=== PATIENT | male | born 1955 | race Caucasian/White ===

== ENCOUNTER → 2022-05-27 10:43 | Outpatient (CLI) | payer MEDICARE, OTHER, SELFPAY ==
[2022-05-27 12:18] LABS: Add Manual Diff / Slide Review NO; Basophils Absolute Auto 100 /uL (0-100); Basophils Percent Auto 1.3 % (0-2); Eosinophils Absolute Auto 200 /uL (0-450); Eosinophils Percent Auto 3.3 % (2-4); Hematocrit 46.7 % (41-53); Hemoglobin 15.9 g/dL (13.5-17.5); Lymphocytes Absolute Auto 1800 /uL (1100-4500); Lymphocytes Percent Auto 28.4 % (25-40); Mean Corpuscular HGB Conc 33.9 % (30-36); Mean Corpuscular Hemoglobin 30.9 PG (26-34); Mean Corpuscular Volume 91.2 fL (80-100); Monocytes Absolute Auto 500 /uL (0-900); Monocytes Percent Auto 8.7 % (3-14); Neutrophils Absolute Auto 3600 /uL (1500-7000); Neutrophils Percent Auto 58.3 % (50-75); Platelet Count 190 X10^3/uL (150-400); Red Blood Cell Count 5.13 X10^6/uL (4.5-5.9); Red Cell Distribution Width 13.9 % (11.6-14.8); White Blood Cell Count 6.3 X10^3/uL (4.5-11.0)
[2022-05-27 12:27] LABS: Blood Urea Nitrogen 12 mg/dL (9-20); Calcium 9.7 mg/dL (8.4-10.2); Carbon Dioxide 27 mmol/L (22-32); Chloride 101 mmol/L (98-107); Estimated Glomerular Filt Rate > 60 mL/min (>60); Glucose 120 mg/dL (80-110); HEMOLYSIS < 15 (0-50); Potassium 4.1 mmol/L (3.4-5.1); Sodium 137 mmol/L (137-145)
== END ==
PROVIDERS: PCP Internal Medicine; Referring Provider Orthopaedic Surgery Orthopaedic Surgery of the Spine; Visit Provider Orthopaedic Surgery Orthopaedic Surgery of the Spine
DX: Z01.818 Encounter for other preprocedural examination (principal); Z01.812 Encounter for preprocedural laboratory examination
CPT/HCPCS: 36415; 80048; 85025; 93005; 93010

== ENCOUNTER → 2022-06-01 10:48 | Outpatient (CLI) | payer MEDICARE, OTHER, SELFPAY ==
[2022-06-01 13:25] LABS: COVID19 -Nasal RAPID Negative (Negative)
== END ==
PROVIDERS: PCP Internal Medicine; Referring Provider Orthopaedic Surgery Orthopaedic Surgery of the Spine; Visit Provider Orthopaedic Surgery Orthopaedic Surgery of the Spine
DX: Z20.822 Contact with and (suspected) exposure to COVID-19 (principal)
CPT/HCPCS: 87635; C9803

== ENCOUNTER 2022-06-02 11:00 | Inpatient (IN) | payer MEDICARE, OTHER, SELFPAY ==
[2022-06-01 09:54] VITALS: BMI 27.1
[2022-06-02] VITALS (15 sets, daily range): BP systolic 111–167; BP diastolic 69–108; PULSE 73–90; RESP 14–20; TEMP 36.2–37.3; O2SAT 93–98; BMI 27.1
--- NOTE | 2022-06-02 | DI.RAD.S_ITS ---
PROCEDURE: XR LUMBAR SPINE 2-3V INDICATIONS: L5-S1 TLIF TECHNIQUE: 2 intraoperative views of the lumbar spine were acquired. COMPARISON: None. FINDINGS: Intraoperative images demonstrate lumbosacral fusion hardware placement. IMPRESSION: Intraoperative imaging obtained during lumbosacral fusion hardware placement. Dictated by: Nate Hansen M.D. on 06/02/2022 at 16:42 Approved by: Nate Hansen M.D. on 06/02/2022 at 16:43
[2022-06-02] MEDS: PREGABALIN 75 MG CAPSULE PO (11:34)
[2022-06-02] MEDS: LACTATED RINGERS 1,000 ML 42 ML IV ×2 (11:34→14:08)
[2022-06-02] MEDS: ACETAMINOPHEN 325 MG TABLET 975 MG PO (11:34)
--- NOTE | 2022-06-02 11:53 | PM.PREOP ---
Pre-operative Note COVID-19 COVID-19 status: Negative Result date/Date tested (Pos, Neg/Pending): 06/01/22 Criteria for continued procedure: Expected advancement of disease process, Possibility delay results in more complex future surgery or treatment, Increased loss of function, Continuing or worsening of significant or severe pain, Deterioration of the patient's condition or overall health and Delay expected to result in less-positive ultimate med/surg outcome Interval Note History & Physical reviewed/Exam performed by Physician: Yes Changes to H&P: No
[2022-06-02] MEDS: CEFAZOLIN 2 GM/20 ML SYRINGE IV ×2 (12:51→20:28)
[2022-06-02] MEDS: BUPIVACAINE 0.5% (PF) 30 ML, EPINEPHrine 0.15 MG INJ (12:55)
--- NOTE | 2022-06-02 13:10 | SUR.OPER ---
Prone on spine table, head in foam head support, padded chest and pelvic supports, gel pad at knees, lower legs supported by pillows; nipples, genitalia and toes free of pressure, arms secured on foam padded arm boards at <90 degrees abduction. Tape over blanket at thigh secured to table. POSITION APPROVED BY SURGEON AND ANESTHESIA
[2022-06-02] MEDS: BUPIVACAINE LIPOSOME 266 MG/20 ML VIAL INJ (14:38)
--- NOTE | 2022-06-02 14:51 | PM.OP.1 ---
Operative Date/Time/Diagnoses Date of procedure: 06/02/22 Time of procedure: 12:30 Pre-op diagnosis: 1. L4-5, L5-S1 spinal stenosis 2. Lumbar recurrent disc herniation at L5-S1 3. Lumbar radiculopathy Post-op diagnosis: same Procedure & Clinicians Procedure: 1. L5-S1 Postero-lateral and posterior interbody fusion 2. L5-S1 interbody cage placement. 3. L5-S1 repeat decompressive laminectomy with bilateral facetecomies 4. L5-S1 Posterior non-segmental instrumentation 5. L4-5 left hemilaminectomy 6. [place] of bone marrow from iliac crest 7. Utilization of microsurgical technique and operating microscope Same procedure as scheduled: Yes Indications: Patient has been having chronic back pain and worsening lumbar radiculopathy. Patient failed multiple conservative management with worsening pain weakness and numbness in her lower extremity. Patient has been having difficulty performing activity of daily living. After discussing risks benefits of treatment options, patient elected proceed with surgery. Surgeon: Mirna Geller Waste Elimination: Laya Siddiqui Click Yes if Unassisted: No Anesthesia Type: General Operative Notes Closure Type: primary Prosthetic devices, grafts, tissues, transplants, or devices: Globus revolve screws, Rise cage Estimated Blood Loss (mL): 50 Blood products transfused: none Procedure in detail: Patient was seen in the preoperative area. Risks and benefits of the surgery was discussed with the patient. Informed consent was obtained from the patient and placed in the chart. Surgical site was marked. Patient was taken to the operative room. General anesthesia was administered. Prophylactic antibiotic was given to the patient less than 30 min before the incision was made. Patient was placed into a prone position on the Aravind table. Patient's back was then prepped and draped in the sterile fashion. Time-out was performed at this time. Using AP and lateral C-arm imaging the interval between L5-S1 was identified and marked on patient's back. A 2 inch incision 2 in from midline was made on the right side first. The fascia was incised in line with skin incision. Globus MARS retractors was placed inside the incision and docked onto the L5 lamina. Using microsurgical technique and operating microscope, a L5 laminectomy and L5-S1 facetectomy was performed using a Kerrison rongeur. Patient was found have severe neural foraminal stenosis and required a total facetectomy for decompression which rendered L5-S1 grossly unstable and required a fusion procedure at the same time. The disc space at L5-S1 was identified. And a total diskectomy was performed at L5-S1 level. The endplates were decorticated using a rasp and shaver. The total diskectomy and decortication was performed at L5-S1 level in order to to accomplish a L5-S1 fusion. The local bone from the laminectomy and facetectomy was saved for local bone grafting. After the total diskectomy and decortication was completed, Trifecta bone graft material was combined with local bone that was harvested earlier. At this time, a separate skin is incision was made over the iliac crest. A Jamshidi needle was inserted into the iliac crest through a separate skin incision. 5 cc of bone marrow aspiration was obtained through the separate skin incision using a Jamshidi needle from the iliac crest. The bone marrow aspiration was combined with local bone and the Trifecta bone grafting material. The bone grafting material was placed into the L5-S1 interbody space along with a expandable cage. The cage was expanded to its maximum height using the torque limiting screwdriver. The MARs retractor was redirected over the L4-5 level under C-arm guidance. Using microsurgical technique and operating microscope a left-sided L4 hemilaminectomy was performed using a Kerrison rongeur. The L4-5 facet on the left was undercut to further decompress the lateral recess. The neural foramina wound was explored at the end of the hemilaminectomy, which was fully decompressed at the L4-5 level at the end of the hemilaminectomy. At this time a mirror image incision was made on the left side. The fascia was incised in line with the skin incision. Globus MARS retractor was inserted and docked onto the L5-S1 posterolateral gutter. Using the power drill, posterior-lateral decortication was performed at L5-S1 level until bleeding cortical bone was identified. The remaining bone grafting material was placed into the L5-S1 posterior lateral gutter he order to accomplish posterolateral fusion at the L5-S1 level. Using the double C-arm technique, pedicle screws were placed into the L5-S1 pedicles bilaterally. This was done by placing the Jamshidi needle into the pedicles, then placing the guidewires over the Jamshidi needle, and finally placing the cannulated screws over the guidewires bilaterally. After the pedicle screws were placed, 2 titanium rods was locked into the heads of the pedicle screws using locking caps and torque limiting screwdriver. After all the hardware was placed, and confirmed with AP and lateral C-arm imaging, the wound was then irrigated with sterile normal saline and packed with Ray-Nixon gauze for 3 min to accomplish hemostasis. After the gauze was removed the deep fascia was closed with #1 Vicryl suture. The subcutaneous layer was closed with 2-0 Vicryl. The skin was closed with skin juan. Patient tolerated the procedure well. There were no complications. Complications: none Post-operative Condition: stable Disposition: PACU Plan for aftercare: Admit to inpatient hospital
[2022-06-02] MEDS: hydrOXYzine pamoate 25 MG CAPSULE PO (15:05)
[2022-06-02] MEDS: HYDROMORPHONE 2 MG INJ IV ×4 (15:05→15:20)
[2022-06-02] MEDS: OXYCODONE IR 5 MG TABLET PO (15:06)
--- NOTE | 2022-06-02 15:43 | SUR.PHASEI ---
Stable PACU stay, BP elevated, spoke with Dr. Daniels. Lisinopril ordered. Pt medicated with Dilaudid, vistaril and oxycodone.
[2022-06-02] MEDS: lisinopriL 20 MG TABLET PO (15:58)
--- NOTE | 2022-06-02 16:02 | SUR.PHASEI ---
Lisinopril given, pt transported to room 210.
[2022-06-02] MEDS: SODIUM CHLORIDE 0.9% 1,000 ML 100 ML IV (16:34)
--- NOTE | 2022-06-02 17:01 | PC.NURSE ---
Pt stated he wanted to get up and go to the bathroom-checked for numbness or weakness and Pt had neither. Pt was able to logroll out of bed and ambulate to the bathroom with sba. and Pt ambulated without dizziness to the bathroom and back to bed. Replaced dressing to back with a coversite because his post-op dressing had rolled up and the tape had split. Pt back to bed with scd's on and running. Bed alarm on for safety. Pt currently is eating his dinner. Stated that his pain to his back improved when he got up and walked.
[2022-06-02] MEDS: ALBUTEROL 2.5 MG/3 ML NEB (ADULT) INH ×2 (17:45→21:15)
[2022-06-02] MEDS: OXYCODONE IR 5 MG TABLET 10 MG PO ×2 (18:21→23:53)
[2022-06-02] MEDS: GABAPENTIN 300 MG CAPSULE PO (20:28)
[2022-06-02] MEDS: AMLODIPINE 5 MG TABLET PO (20:28)
[2022-06-02] MEDS: SENNOSIDES 8.6 MG TABLET 17.2 MG PO (20:28)
[2022-06-02] MEDS: DOCUSATE 100 MG CAPSULE PO (20:28)
[2022-06-03 03:00] VITALS: BP 140/74; PULSE 77; RESP 17; TEMP 36.8; O2SAT 95
[2022-06-03] MEDS: CEFAZOLIN 2 GM/20 ML SYRINGE IV (05:15)
[2022-06-03] MEDS: ACETAMINOPHEN 325 MG TABLET 650 MG PO (05:20)
--- NOTE | 2022-06-03 08:12 | P.DS_ITS ---
History of Present Illness History of Present Illness Date Patient Seen: 06/03/22 Time Patient Seen: 08:12 Chief complaint: Back pain Narrative: Pain is mild this morning. Denies fever or chills. No nausea vomiting. Patient has assistance at home. Discharge Providers Provider Discharge Date: 06/03/22 Primary care physician: Dayana Hernandez MD Consults: 06/02/22 16:03 Consult to Occupational Therapy Evaluate & Treat Comment: Physician Instructions: Evaluate and treat Consult to Physical Therapy Evaluate & Treat Comment: Physician Instructions: Evaluate and Treat Discharge provider: Javy Cortez PA-C Summary Hospital Course Discharge Diagnosis: 1. L4-5, L5-S1 spinal stenosis 2. Lumbar recurrent disc herniation at L5-S1 3. Lumbar radiculopathy Hospital Course: Procedure: 1. L5-S1 Postero-lateral and posterior interbody fusion 2. L5-S1 interbody cage placement. 3. L5-S1 repeat decompressive laminectomy with bilateral facetecomies 4. L5-S1 Posterior non-segmental instrumentation 5. L4-5 left hemilaminectomy 6. [place] of bone marrow from iliac crest 7. Utilization of microsurgical technique and operating microscope Same procedure as scheduled: Yes Indications: Patient has been having chronic back pain and worsening lumbar radiculopathy. Patient failed multiple conservative management with worsening pain weakness and numbness in her lower extremity.? Patient has been having difficulty performing activity of daily living.? After discussing risks benefits of treatment options, patient elected proceed with surgery. Surgeon: Mirna Geller Meter/Relay Technician: Laya Siddiqui Click Yes if Unassisted: No Anesthesia Type: General Operative Notes Closure Type: primary Prosthetic devices, grafts, tissues, transplants, or devices: Globus revolve screws, Rise cage Estimated Blood Loss (mL): 50 Blood products transfused: none Patient admitted to the hospital for the above-mentioned procedure. Patient consented to the same. Patient underwent lumbar fusion June 02, 2022. Patient back in his room recovering well and is in stable condition. Patient mobilize this morning with physical therapy. Discharge home today after physical therapy. Exam Vital Signs (past 8 hours): - 06/03/22 03:00 Temperature 98.3 F Pulse Rate 77 Respiratory Rate 17 Blood Pressure 140/74 Pulse Oximetry 95 Oxygen Flow Rate 0 Oxygen Delivery Method Room Air Oxygen Flow Rate 0 Narrative Exam Narrative: 66-year-old male resting comfortably in bed in no apparent distress. Patient having breakfast. Dressing Clean, dry, intact.. Motor functions intact bilateral lower extremities. Sensation grossly intact to light touch bilateral lower extremities. Const General: cooperative and comfortable Orientation: alert Resp Effort & Inspection: normal respiratory effort and able to speak in complete sentences [facility] Medical History COPD (chronic obstructive pulmonary disease) Diabetes Diverticulitis Diverticulosis Easy bruisability Hearing impaired Hepatitis C (2001) Hiatal hernia HLD (hyperlipidemia) HTN (hypertension) Osteoarthritis Post laminectomy syndrome (2011) Prostate cancer (2011) Recurrent herniation of lumbar disc Umbilical hernia Surgical History H/O vasectomy History of surgery History of total right hip arthroplasty (12/2020) Hx of prostatectomy (2011) Hx of repair of right rotator cuff Social History household members: spouse and family Smoking Status: Former smoker alcohol intake: current Discharge Assessment & Plan Assessment and Plan Assessment: Patient progressing as expected Plan of Treatment: Multimodal pain management Mobilize with physical therapy Discharge home today after physical therapy. Discharge Plan Discharge Plan Patient Disposition: Home Discharge orders & Medications Discharge Orders: Discharge (Order); Ordered 06/03/22 Ordered By: Javy Cortez Prescriptions: New acetaminophen 325 mg Tablet 650 mg PO Q6HR PRN (Reason: Pain, Mild (1-3)) Qty: 60 0RF docusate sodium 100 mg Capsule 100 mg PO BID Qty: 20 0RF oxycodone 5 mg Tablet 10 mg PO Q3HR PRN (Reason: Pain, Severe (7-10)) Qty: 60 0RF hydroxyzine pamoate 25 mg Capsule 25 mg PO Q4HR PRN (Reason: Nausea And Vomiting) Qty: 30 0RF Continued cetirizine [Zyrtec] 10 mg Tablet 10 mg PO BID amlodipine 5 mg Tablet 5 mg PO BID gabapentin 300 mg Capsule 300 mg PO BEDTIME lisinopril-hydrochlorothiazide 20-25 mg Tablet 1 tab PO DAILY albuterol sulfate 90 mcg/actuation Hfa Aerosol Inhaler 2 puff INHALATION Q4-6H PRN (Reason: Shortness Of Breath) rosuvastatin 20 mg Tablet 20 mg PO DAILY Follow up/Referrals: Dayana Hernandez MD [Primary Care Provider] - Mirna Geller MD [Physician] - (2 weeks) Diet/Activity/Treatments Diet: Diet as Tolerated Activity: Limit bending, lifting, twisting Skin/Wound/Dressing Care Report to your healthcare provider any signs of infection, such as:: chills, fever, increased pain, unusual drainage and unusual redness Dressing: Keep dressing clean and dry Visit Report/Discharge Packet Instructions: DI for Transforaminal Lumbar Interbody Fusion Stand Alone Forms: Surgery Discharge Discharge Data Primary Care Provider: Dayana Hernandez Attending Provider: Mirna Geller
[2022-06-03] MEDS: OXYCODONE IR 5 MG TABLET 10 MG PO (09:04)
[2022-06-03] MEDS: LORATADINE 10 MG TABLET PO (09:04)
[2022-06-03] MEDS: DOCUSATE 100 MG CAPSULE PO (09:04)
[2022-06-03] MEDS: ATORVASTATIN 20 MG TABLET 40 MG PO (09:04)
--- NOTE | 2022-06-03 09:34 | OT.IP.EVAL ---
Current Diagnoses Other intervertebral disc displacement, lumbar region (06/02/22) Postlaminectomy syndrome, not elsewhere classified (06/02/22) Surgery Performed Operation Date: 06/02/22 12:45 Actual Procedures p L5-S1 TLIF, L4-5 left hemilaminectomy - Mirna Geller MD Past Medical History (Last Reviewed 06/03/22 @ 08:15 by Javy Cortez PA-C) COPD (chronic obstructive pulmonary disease) Diabetes Diverticulitis Diverticulosis Easy bruisability Hearing impaired Hepatitis C (2001) Hiatal hernia HLD (hyperlipidemia) HTN (hypertension) Osteoarthritis Post laminectomy syndrome (2011) Prostate cancer (2011) Recurrent herniation of lumbar disc Umbilical hernia Surgical History (Last Reviewed 06/03/22 @ 08:15 by Javy Cortez PA-C) H/O vasectomy History of surgery History of total right hip arthroplasty (12/2020) Hx of prostatectomy (2011) Hx of repair of right rotator cuff Occupational Therapy Inpatient Evaluation/Re-Eval M1 PT/OT-IP Prior Functional Status Start: 06/03/22 12:04 Freq: NEEDED Status: Active Protocol: Document 06/03/22 09:05 [facility] (Rec: 06/03/22 12:30 [facility] [id number]) Medical Review Prior Functional Status Communication independent Mobility and Gait Pt states did not use any devices for ambulation. Activities of Daily Living and IADL's Increased time for ADL's due to his pain. Social History Household Members spouse,family Living Arrangements House Number of Floors (Floors) Two Floors Home Environment High Toilet,Walk in Shower Home Equipment Four Wheel Walker,Straight Cane,Shower Seat without Backrest,Hand Held Shower,Long Handled Sponge,Long Handled Shoe Horn,Shellfish Manager,Grab Bars Near Toilet,Grab Bars In Shower Additional Social History Comment crutches M2 OT-IP Current Condition Start: 06/03/22 12:04 Freq: Status: Active Protocol: Document 06/03/22 09:05 [facility] (Rec: 06/03/22 12:30 [facility] [id number]) Occupational Therapy Current Condition Current Condition Evaluation Date 06/03/22 Treatment Diagnosis s/p L4-5 , left hemilaminectomy, L5-S1 TLIF Post Operative Precautions Lumbar Precautions Log Roll,No Twisting,Limit Bending,Lifting Restriction of 10 lbs,Gait Belt above Incisional Area M3 OT- IP Subjective and Pain Start: 06/03/22 12:04 Freq: Status: Active Protocol: Document 06/03/22 09:05 [facility] (Rec: 06/03/22 12:30 [facility] [id number]) OT- Subjective Occupational Therapy Visit Type Type Initial Evaluation Visit Start Time 09:05 Visit Stop Time 09:34 Total Visit Minutes 29 Occupational Therapy Visit Comments Patient Comments Pt agreed to get up for OT eval and wanting to get dressed. Patient/Caregiver Goals TO go home. OT Pain Assessment Pain When Pain Assessed During Mobility Pain Present Pain Present Pain Reported Location back Intensity 8 Scale Used Numeric (0 - 10) M4 OT- IP ADL's Start: 06/03/22 12:04 Freq: Status: Active Protocol: Document 06/03/22 09:05 [facility] (Rec: 06/03/22 12:30 [facility] [id number]) OT VXY-Gnwx-Apxidim General Evaluation Self-Feeding Ability Independent OT ADL-Grooming General Evaluation Grooming Ability Standby Assistance Areas Needing Assistance Retrieving/Set-up of Grooming Items OT ADL-Oral Care General Eval Oral Care Ability Standby Assistance Areas of Assistance Retrieving/Set-Up of Items OT ADL-Dressing General Eval Upper Body Dressing Ability Independent Lower Body Dressing Ability Minimal Assistance Areas Needing Assistance Socks Comments OT Dressing Comments Able to show pt sock aid and pt able to use with good safety and understanding. OT ADL-Toileting Comments OT Toileting Comments Able to talk to pt regarding may be easier to stand to wipe at this time. OT ADL-Bathing Comments OT Bathing Comments Pt states to shower at home. M5 OT- IP IADL's Start: 06/03/22 12:04 Freq: Status: Active Protocol: Document 06/03/22 09:05 [facility] (Rec: 06/03/22 12:30 [facility] [id number]) OT-Instrumental Activities of Daily Living Home Safety Awareness Awareness of Need for Assistance at Home Good Awareness Ability to Problem Solve Emergency Able to Problem Solve Situations Home Safety Comments Pt's to be home to be able to assist her for all needs as needed. M6 OT- IP Functional Cognition Start: 06/03/22 12:04 Freq: Status: Active Protocol: Document 06/03/22 09:05 [facility] (Rec: 06/03/22 12:30 [facility] [id number]) Cognitive Factors Limiting Selfcare Function Cognitive Ability Level of Alertness Alert Patient Orientation Name,Place,Situation Attention Span Ability Capable of Focused Attention, Capable of Sustained Attention Ability to Follow Commands Able to Follow Multi-Step Commands Memory Description No Deficits Noted Safety Awareness No Deficits Noted Problem Solving Ability No deficits Noted Cognitive Comments Cognitive Assessment Comments Pt able to follow back precautions after initial education of back precautions. Pt just needing occasional cues to slow down. OT- Vision and Hearing OT- Hearing Assessment OT- Hearing Assessment WFL M7 OT- IP Mobility and Balance Start: 06/03/22 12:04 Freq: Status: Active Protocol: Document 06/03/22 09:05 [facility] (Rec: 06/03/22 12:30 [facility] [id number]) OT- Bed Mobility Assessment Supine to Sit Supine to Sit Assist Standby Assistance Sit to Supine Sit to Supine Assist Standby Assistance Scooting Scooting to Edge of Bed Standby Assistance OT-Transfer Assessment Sit to and From Stand Sit to and from Stand Standby Assistance Transfers Transfer Ability Standby Assistance Technique Transfer Destination Bed,Chair Transfer Technique Stand Step Pivot Devices Transfer Assistive Devices None Comments Mobility Comments Pt SBA for all needs of bed mobility and mobility in the room. OT- Balance Assessment Sitting Balance and Reactions Static Sitting Balance Ability Normal Dynamic Sitting Balance Ability Normal Standing Balance and Reactions Static Standing Balance Ability Normal Dynamic Standing Balance Ability Good M8 OT- IP Objective Assessments Start: 06/03/22 12:04 Freq: Status: Active Protocol: Document 06/03/22 09:05 [facility] (Rec: 06/03/22 12:30 [facility] [id number]) OT-Muscle Tone Assessment Muscle Tone WNL Yes M9 OT- IP Assessment and Plan Start: 06/03/22 12:04 Freq: Status: Active Protocol: Document 06/03/22 09:05 [facility] (Rec: 06/03/22 12:30 [facility] [id number]) OT Summary Assessment and Plan Potential Rehabilitation Potential Excellent Analytic Complexity at Evaluation Low Summary OT Impairments Pain,Dressing,Bathing Progress Towards Goals Progressing Toward Goals Assessment Summary Pt low complexity and main barriers needing occasional vc to slow down and incorporate his back precautions for all needs. Pt has a supportive to be able to assist him for all needs. Goals Grooming Goal Independent Dressing Goal Independent Toileting Goal Independent Bathing Goal Independent Toilet Transfer Goal Independent Shower Transfer Goal Independent Days to Meet Goals 1 Frequency of Treatment Frequency Of Treatment Once a Day Treatment Plan OT Treatment Plan ADL Training,Functional Mobility,Patient/Family Education,Discharge Planning Discharge Recommendations OT Discharge Recommendations Home with Assistance Transportation Needs at Discharge Private Vehicle
--- NOTE | 2022-06-03 10:20 | PT.IIE ---
Current Diagnoses Other intervertebral disc displacement, lumbar region (06/02/22) Postlaminectomy syndrome, not elsewhere classified (06/02/22) Surgery Performed Operation Date: 06/02/22 12:45 Actual Procedures p L5-S1 TLIF, L4-5 left hemilaminectomy - Mirna Geller MD Surgical History (Last Reviewed 06/03/22 @ 08:15 by Javy Cortez PA-C) H/O vasectomy History of surgery History of total right hip arthroplasty (12/2020) Hx of prostatectomy (2011) Hx of repair of right rotator cuff Medical History (Last Reviewed 06/03/22 @ 08:15 by Javy Cortez PA-C) COPD (chronic obstructive pulmonary disease) Diabetes Diverticulitis Diverticulosis Easy bruisability Hearing impaired Hepatitis C (2001) Hiatal hernia HLD (hyperlipidemia) HTN (hypertension) Osteoarthritis Post laminectomy syndrome (2011) Prostate cancer (2011) Recurrent herniation of lumbar disc Umbilical hernia Physical Therapy Inpatient Evaluation/Re-Eval M1 PT/OT-IP Prior Functional Status Start: 06/03/22 13:54 Freq: NEEDED Status: Active Protocol: Document 06/03/22 10:20 AB (Rec: 06/03/22 14:05 AB [id number]) Medical Review Prior Functional Status Medical History Reviewed Yes Communication able to make needs known Mobility and Gait pt tated that he is independent with all mobiltiies and ambulation without AD Social History Household Members spouse,family Living Arrangements House Number of Floors (Floors) Two Floors Number of Stairs To Enter/Railing? pt stays on main level of the house no steps to enter Home Environment Walk in Shower,Built-In Shower Seat Home Equipment Four Wheel Walker,Straight Cane,Crutches,Hand Held Shower ,Grab Bars In Shower Additional Social History Comment pt will have his spouse to assist him; his [id number] also at home to assist him if needed M2 PT-IP Current Condition Start: 06/03/22 13:54 Freq: NEEDED Status: Active Protocol: Document 06/03/22 10:20 AB (Rec: 06/03/22 14:05 AB [id number]) Physical Therapy Current Condition Current Condition Evaluation Date 06/03/22 Treatment Diagnosis s/o L5S1 TLIF; difficulty in walking Onset Date 06/02/22 M3 PT-IP Subjective Start: 06/03/22 13:54 Freq: NEEDED Status: Active Protocol: Document 06/03/22 10:20 AB (Rec: 06/03/22 14:05 AB [email or web address]) Subjective Physical Therapy Visit Type Type Initial Evaluation Visit Start Time 10:20 Visit Stop Time 10:45 Total Visit Minutes 25 Number of COMMODITY SPECIALIST Visits 0 Physical Therapy Visit Comments Patient Comments agreeable to do PT Therapy Pain Assessment Pain When Pain Assessed At Rest Pain Present Pain Present Pain Reported Location back Intensity 4 Scale Used Numeric (0 - 10) Pain Management Techniques Apply Cold,Distraction, Modification of Treatment,Re- positioning,Timing of Activity with Medications M4 PT-IP Mobility and Gait Start: 06/03/22 13:54 Freq: NEEDED Status: Active Protocol: Document 06/03/22 10:20 AB (Rec: 06/03/22 14:05 [email or web address]) PT-Bed Mobility Assessment Rolling Type of Rolling Log Rolling Level of Assist Independent Supine to Sit Supine to Sit Independent Sit to Supine Sit to Supine Independent PT-Transfer Assessment Sit to and From Stand Sit to and from Stand Standby Assistance,1 Person Assistance,Use of Upper Extremities Equipment Transfer Assistive Device Gait Belt,4 Wheeled Walker Orthotic/Prosthetic Devices or Brace: No Transfers Transfer Destination Chair Transfer Technique ambulated Transfer Ability Level of Assist Standby Assistance,1 Person Assistance,Use of Upper Extremities Comments Mobility Comments reviewed back precautions and pt able to recall. completed log roll supine to sit SBA. completed sit to stand SBA and ambulated in room using FWW SBA. pt sat on chair. agreed to walk in the hallway. pt has a 4WW at home. assessed ambultion using 4WW. completed sit to stand from chair SBA and ambulated in the hallway ~ 225 ft using 4WW SBA. pt ambulated back to his room. assessed ambulation without AD and completed ~ 30 ft in room SBA. antalgic gait with increase R lateral lean. pt stated that he has scoliosis. pt requested to go back to bed . completed lot roll sit to supine SBA. positioned in bed . call light and table placed within reach. Gait Assessment Gait Gait Assistance Required: Standby Assistance,1 Person Assist Distance (Feet) 225 Able to Maintain Weight Bearing Status Yes During Gait Assistive Devices Assistive Device None,Gait Belt,4 Wheeled Walker Orthotic/Prosthetic Devices or Brace: No Gait Deviations General Gait Pattern Antalgic,Decreased Stride Length,Decreased Feet Clearance Factors Limiting Gait Function Factors Limiting Gait Function Decreased Activity Tolerance, Decreased Strength,Limited Range of Motion,Pain,Poor Safety Awareness PT-Balance Assessment Sitting Balance and Reactions Static Sitting Balance Ability Normal Dynamic Sitting Balance Ability Normal Standing Balance and Reactions Static Standing Balance Ability Good Dynamic Standing Balance Ability Fair Device Used without AD M5 PT-IP Objective Assessments Start: 06/03/22 13:54 Freq: NEEDED Status: Active Protocol: Document 06/03/22 10:20 AB (Rec: 06/03/22 14:05 AB [email or web address]) Orientation Orientation/Cognition Level of Alertness Alert Orientation Name,Age,Birthday,Month,Date, Year,Day of Week,Place, Situation Language Function Ability No Deficits Noted Safety Awareness Understands Safety Issues Memory Description No Deficits Noted Gross Range of Motion Lower Extremity ROM Assessment Within Functional Limits Strength Comments Strength Comments RLE: 4/5 LLE: 4-/5 Coordination Assessment Gross Coordination Gross Coordination WNL Sensation Assessment Sensation Gross Sensation WNL Muscle Tone Muscle Tone WNL Yes M6 PT-IP Treatment Start: 06/03/22 13:54 Freq: NEEDED Status: Active Protocol: Document 06/03/22 10:20 AB (Rec: 06/03/22 14:05 AB [email or web address]) Physical Therapy Treatment Education Education Provided Precautions,Weight Bearing Status,Post-Op Packet,Safety M7 PT-IP Assessment and Plan Start: 06/03/22 13:54 Freq: NEEDED Status: Active Protocol: Document 06/03/22 10:20 AB (Rec: 06/03/22 14:05 [email or web address]) PT Summary Assessment and Plan Potential Rehabilitation Potential Good Status of Condition at Evaluation Stable Summary Impairments Pain,ROM,Strength,Balance, Coordination,Sensation,Tone, Cognition,Bed Mobility, Transfers,Gait,Activity Tolerance Assessment Summary pt requiring SBA with mobility using 4WW for ambulation. pt plans to go home and will have his spouse to assist him as needed. pt may to go home when medically stable. Goals Bed Mobility Goal Independent Transfer Goal Independent,Four Wheeled Walker Gait Goal Independent,Four Wheel Walker Gait Distance 300 Days to Meet Goals 3 Frequency of Treatment Frequency Of Treatment Twice a Day Treatment Plan Physical Therapy Treatment Plan Bed Mobility Training,Transfer Training,Gait Training, Therapeutic Exercise,Balance Retraining,Post Op Education, Discharge Planning,Hot or Cold Pack,Neuromuscular Re-ed, Coordination Retraining,Manual Therapy Precautions Lumbar Precautions Log Roll,No Twisting,Limit Bending,Lifting Restriction of 10 lbs,Gait Belt above Incisional Area Recommendations To Nursing Amount of Assist Needed Standby Assistance Discharge Recommendations PT Discharge Recommendations Home with Assistance Transportation Needs at Discharge Private Vehicle
[2022-06-03 10:54] VITALS: PULSE 88; RESP 16; O2SAT 96
[2022-06-03] MEDS: ALBUTEROL 2.5 MG/3 ML NEB (ADULT) INH (10:54)
[2022-06-03 10:59] VITALS: BP 137/77; PULSE 84; RESP 16; TEMP 37.4; O2SAT 95
--- NOTE | 2022-06-03 11:36 | PC.NURSE ---
Pt is dressed and ready for discharge home with Spouse Luciana. IV has been removed. Went over d/c instructions with Pt and Spouse-discussed d/c meds, time of last dose, reviewed stroke education and back precautions, dsg to back changed (had a small amount of drainage and had rolled up a bit. Reminded Pt that he was not permitted to drive while taking narcotics and to not exceed 3000mg of acetaminophen in 24 hours. Encouraged Pt to drink plenty of fluids to prevent constipation or dehydration, reviewed s/s of infection and when to call MD and to follow up as scheduled. Pt denied further questions and was taken out via w/c by RN to pov with Spouse and all belongings.
--- NOTE | 2022-06-03 13:06 | CM.DANOTE ---
Patient is a 66 yo male who was admitted on 06/02/22 for TLIF. Pt has [employer] and [employer] for insurance and his PCP is Dr. Dayana Hernandez. EMR was reviewed. Per Ortho, pt tolerated procedure well and likely stable to d/c home today pending PT. Per PT/OT, recommending safe d/c home with spouse and outpt PT. SW met bedside with pt and explained role as OT initial eval being completed and pt confirms he lives at home in [place] with his spouse and works at [employer] and is independent with ADLs and does not use DME and still drives. Pt denies any hx of HH or SNF and does not anticipate any needs at d/c. Per RN, no concerns with d/c at all and states best recovery from TLIF I've ever seen. Pt confirms he is calling his spouse now to provide transport home within the hour and outpt Ortho f/u. Plan: Patient to d/c home via spouse POV this morning and outpt Ortho f/u and no further SW needs at this time. JEANNETTE Lopes Discharge Planning/Care Management CM Discharge Assessment Start: 06/03/22 13:04 Freq: Status: Discharge Protocol: Document 06/03/22 13:05 BF (Rec: 06/03/22 13:06 BF [id number]) Discharge Planning Assessment Assigned Machinery Rigger JEANNETTE George DPOA/Assigned Designee Name fidel Chowdhury Advance Directives? No Advance Directives on File No History Provided By Patient,Medical Record Has Patient been admitted in last 30 No days? Prior Living Arrangements House Household Members spouse,family Type of transporation used prior to Drives own vehicle admit Independent with ADL's Yes Is patient alert and oriented? Yes Caregiver for Another No Community Services used prior to Physical Therapy admission: DME Already Rented / Owned FWW / Walker Barriers to Discharge No Discharge Plan Home Community Services Physical Therapy Transportation Arrangement Spouse to arrive around 1000- 1030 Referrals Initiated None needed Whiteboard Updated in Patient Room with Yes name and ext. # of Machinery Rigger Review Status In Process Please Provide Date Initial DC 06/03/22 Assessment Was Performed Next Review Type Continued Stay Review Pre-Anesthesia Assessment Start: 06/01/22 09:54 Freq: Status: Discharge Protocol: Document 06/01/22 09:54 CAB (Rec: 06/01/22 10:42 CAB [id number]) Pre-Anesthesia Assessment Patient Information Reviewed Via Phone Assessment Assessment Completed With Patient Diagnostic Results BMP/CMP,CBC,EKG Comment Labs/ECG @ 05/27/22, COVID screen @ 06/01/22 Primary Care Provider Dayana Hernandez Seen Specialist in Last 12 Months Yes Specialist Seen Bridge Teacher,Orthopedist Primary Language Bahamian Intelligence Agent Required No Height 182.88 cm Weight 90.718 kg Body Mass Index (BMI) 27.1 Hearing Ability Hard of Hearing Visual Assist Glasses Dentition Type Teeth, Natural Present,Full- Upper Barriers to Learning None Hx Anesthesia Reactions No Hx Family Anesthesia Reaction No Hx Malignant Hyperthermia No Hx Blood Transfusions No Anesthesia Review Requested No alcohol intake current alcohol intake frequency 0-2 drinks per day Smoking Status Former smoker Tobacco type cigarettes how long ago did patient quit smoking Quit 2012 Substance Use Type does not use Pain Present Pain Reported Musculoskeletal Symptoms Back Pain History of Falling (Recent or History of No ) Patient is completely paralyzed or No completely immobile Mental Status Oriented to own ability Is patient on oxygen? No Does patient have TRIPLETT/SOB Yes: Occasional r/t COPD Hx Sleep Apnea No Currently Taking a Beta [place] No Can You Climb a Flight of Stairs Without No SOB Hx Chest Pain No Hx SOB Yes: Occasional r/t COPD Anti-Coagulant Therapy No Has a Line Controller No Cardiac Testing No Hx Pacemaker/ICD No Pacemaker Rep Required? 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 Received a COVID vaccine? Yes: Needs second booster Received all doses? No Marital Status Lives With spouse,family Prior Living Arrangements House Number of Floors (Floors) Two Floors Support System Family,Spouse Does the Patient Have Assistance After Yes Surgery Patient Discharge Plan Description Return Home Comment Pt advised 1 night length of stay per surgeon Feels Safe in Current Environment Yes Been Physically Hurt or Threatened By a No Person in Current Environment Do you have thoughts of harming yourself None or others? Are you currently considering suicide? No Do you have a plan to hurt yourself or No Plan others? Do You Have Any Spiritual Beliefs That No May Affect Your HC Choices? Do You Have Any Cultural Practices That No May Affect Your HC Choices? Comment Quirino Who Can We Speak to About Patient's Care Family, friends Identifying Code for Release of Patient Declines to issue Information Health Care Proxy/Next of Kin Luciana () Health Care Proxy Emergency Contact Name Luciana () Emergency Contact Advance Directives? No Power of Computer Numerical Control Programmer No Power of Computer Numerical Control Programmer Name Luciana () Power of Computer Numerical Control Programmer PAC Instructions Diabetes instructions,Durable medical equipment,Medications to take/avoid,Nasal antibiotic ,No ETOH/petroleum product on skin DOS,NPO,Post-op transportation,Pre-surgical wash,Sensory aids,Sturdy shoes /comfortable clothes,Do not bring valuables and remove jewelry Comment Pt states never given Mupirocin
== END 2022-06-03 11:40 | disposition home or self-care (01) | DRG 455 ==
LOC: OR 11:01 → AC 11:05
PROVIDERS: Admitting Provider Orthopaedic Surgery Orthopaedic Surgery of the Spine; PCP Internal Medicine; Referring Provider Orthopaedic Surgery Orthopaedic Surgery of the Spine; Visit Provider Orthopaedic Surgery Orthopaedic Surgery of the Spine
PROC: 0SG30AJ Fusion of Lumbosacral Joint with Interbody Fusion Device, Posterior Approach, Anterior Column, Open Approach (ICD-10-PCS; principal; 2022-06-02 12:45)
DX: M51.26 Other intervertebral disc displacement, lumbar region (principal); M48.061 Spinal stenosis, lumbar region without neurogenic claudication; M48.07 Spinal stenosis, lumbosacral region; M51.27 Other intervertebral disc displacement, lumbosacral region; M54.16 Radiculopathy, lumbar region; I10 Essential (primary) hypertension; E78.5 Hyperlipidemia, unspecified; J44.9 Chronic obstructive pulmonary disease, unspecified; Z20.822 Contact with and (suspected) exposure to COVID-19; Z87.891 Personal history of nicotine dependence
CPT/HCPCS: 72100; 76000; 82962; 87635; 94640; 97161; 97165; 97535; C9803; C1713; C1831; C9290; J0171; J0690; J1100; J1170; J2250; J2405; J2704; J3010; J7613

== ENCOUNTER 2024-01-11 11:27 | Day surgery (SDC) | payer MEDICARE, OTHER, SELFPAY ==
[2022-06-02 16:14] VITALS: BMI 27.1
--- NOTE | 2024-01-11 12:02 | P.HP_ITS ---
History of Present Illness History of Present Illness Date Patient Seen: 01/11/24 Chief complaint: EGD & Colonoscopy Narrative: Screening colonoscopy and upper endoscopy to screen for esophageal varices with a new diagnosis of cirrhosis [facility] Medical History COPD (chronic obstructive pulmonary disease) Diabetes Diverticulitis Diverticulosis Easy bruisability Hearing impaired Hepatitis C (2001) Hiatal hernia HLD (hyperlipidemia) HTN (hypertension) Osteoarthritis Post laminectomy syndrome (2011) Prostate cancer (2011) Recurrent herniation of lumbar disc Umbilical hernia Surgical History H/O vasectomy History of surgery History of total right hip arthroplasty (12/2020) Hx of prostatectomy (2011) Hx of repair of right rotator cuff Social History household members: spouse and family Smoking Status: Former smoker alcohol intake: current Meds Home Medications and Allergies Home Medications Medication Instructions Recorded Confirmed Type albuterol sulfate 90 mcg/actuation 2 puff inhalation Q4-6H PRN 06/01/22 06/02/22 History aerosol inhaler Shortness Of Breath amlodipine 5 mg tablet 5 mg PO BID 06/01/22 06/02/22 History cetirizine 10 mg tablet (Zyrtec) 10 mg PO BID Dermatographia 06/01/22 06/02/22 History gabapentin 300 mg capsule 300 mg PO BEDTIME 06/01/22 06/02/22 History lisinopril 20 1 tab PO DAILY 06/01/22 06/02/22 History mg-hydrochlorothiazide 25 mg tablet rosuvastatin 20 mg tablet 20 mg PO DAILY 06/01/22 06/02/22 History acetaminophen 325 mg tablet 650 mg (2 x 325 mg) PO Q6HR PRN 06/03/22 Rx Pain, Mild (1-3) #60 tabs docusate sodium 100 mg capsule 100 mg PO BID #20 caps 06/03/22 Rx hydroxyzine pamoate 25 mg capsule 25 mg PO Q4HR PRN Nausea And 06/03/22 Rx Vomiting #30 caps oxycodone 5 mg tablet 10 mg (2 x 5 mg) PO Q3HR PRN Pain, 06/03/22 Rx Severe (7-10) #60 tabs Allergies Allergy/AdvReac Type Severity Reaction Status Date / Time morphine AdvReac Severe My blood Verified 01/11/24 11:[address] up Exam Narrative Exam Narrative: Oropharynx free of lesions Chest clear to auscultation percussion Cardiac exam reveals no S3 or murmur Assessment & Plan Assessment & Plan narrative: Scope screening colonoscopy and screening for esophageal varices. Risks, benefits, alternatives have been explained including the possible risks of placing an esophageal variceal band.
--- NOTE | 2024-01-11 12:03 | PM.OP.EC ---
Operative Date/Time/Diagnoses Date of procedure: 01/11/24 Pre-op diagnosis: See indication and findings Procedure & Clinicians Study performed: EGD and colonoscopy Indications: Screening for esophageal varices and colorectal cancer screening Surgeon: Racquel Sykes Procedure Notes Procedure in detail: After informed consent was obtained the patient was placed in left lateral decubitus position. The video upper scope was placed into the oropharynx and with the patient's help swelled into the esophagus. The esophagus stomach and duodenum were carefully examined. On withdrawal, retroflexed view the GE junction was performed. The scope was removed. The patient tolerated procedure well. The patient was then turned and the colonoscope substituted. This was introduced into the rectum slowly advanced to the cecum. Preparation was good. On slow withdrawal mucosa was carefully examined. The scope was removed. The patient tolerated procedure well. Blood loss none Complications none Sedation mac Findings EGD 1. Normal esophagus without any evidence of varices 2. Very regular squamocolumnar junction 3. Small hiatal hernia 4. Mild gastropathy of portal hypertension 5. Normal duodenal bulb and sweep Colonoscopy 1. Normal colonoscopy to cecum 2. Moderate internal hemorrhoids Mauricio should have follow-up upper endoscopy in 1 year to continue as screening for esophageal varices. Colonoscopy does not have to be repeated for at least 5 more years.
[2024-01-11 12:08] VITALS: BP 154/90; PULSE 74; RESP 16; TEMP 36.6; O2SAT 97
[2024-01-11] MEDS: LACTATED RINGERS 1,000 ML 100 ML IV (12:21)
[2024-01-11 13:13] VITALS: BP 139/100; PULSE 85; RESP 17; TEMP 36.3; O2SAT 97
[2024-01-11 13:16] VITALS: BP 133/83; PULSE 63; RESP 16; O2SAT 97
[2024-01-11 13:22] VITALS: BP 133/83; PULSE 62; RESP 12; O2SAT 97
[2024-01-11 13:24] VITALS: BP 150/101; PULSE 63; RESP 16; TEMP 36.3; O2SAT 98
== END 2024-01-11 13:50 | disposition home or self-care (01) ==
PROVIDERS: PCP Internal Medicine; Referring Provider Internal Medicine Gastroenterology; Visit Provider Internal Medicine Gastroenterology
PROC: 0DJD8ZZ Inspection of Lower Intestinal Tract, Via Natural or Artificial Opening Endoscopic (ICD-10-PCS; CPT 45378; principal; 2024-01-11 12:30)
PROC: 0DJ08ZZ Inspection of Upper Intestinal Tract, Via Natural or Artificial Opening Endoscopic (ICD-10-PCS; CPT 43235; 2024-01-11 12:30)
DX: Z12.11 Encounter for screening for malignant neoplasm of colon (principal); K74.60 Unspecified cirrhosis of liver; K76.6 Portal hypertension; K31.89 Other diseases of stomach and duodenum; K44.9 Diaphragmatic hernia without obstruction or gangrene; K64.8 Other hemorrhoids
CPT/HCPCS: 43235; G0121; J2704; J3010